=== PATIENT | male | born 1995 | race Caucasian/White ===

== ENCOUNTER 2025-01-20 13:33 | Observation (INO) ==
--- NOTE | 2025-01-20 14:04 | Emergency Department Note ---
Impression & Plan Alcoholic intoxication ED Provider Note Provider: Mir Golden MD CHIEF COMPLAINT: Intoxication HISTORY OF PRESENT ILLNESS: Patient is a 29-year-old gentleman sent via ambulance from [facility] rehab today after arriving intoxicated. Patient is evidently going there for alcohol rehab. According to facility and patient's father patient had a significant mount of alcohol up to 15 beers and a pint of vodka on the way there. Has not been taking his lithium in the last several days. Reported have allergies to Haldol Lamictal and has a history of violent/combative alcohol withdrawal. No traumas reported. Patient himself and provide me significant history and is barely arousable with physical stimuli upon evaluation. Does not urinate distress however. No vomiting reported. There is no reported history of alcohol withdrawal seizures. Father reports the patient has been through rehab several times and has been staying with last 2 weeks and has been drinking fairly heavily prickly over the past week. No reports of any seizures in the past with withdrawal. PAST MEDICAL HISTORY: As noted above MEDICATIONS: Home medication list reviewed not currently taking his lithium SOCIAL HISTORY: History of alcohol abuse PHYSICAL EXAM: GENERAL: Resting on the stretcher on his left side. Minimal grimace to painful stimuli. Smell of alcohol present Head: normocephalic and atraumatic EYES: No injection, discharge or icterus. PERRL NECK: Trachea midline. Supple. ENT: Mucous membranes pink and moist. LUNGS: Airway patent. No retractions. Breath sounds clear with good air entry bilaterally. HEART: Regular rate and rhythm. No chest wall tenderness ABDOMEN: Soft and non-tender, without guarding or rebound. SKIN: Acyanotic, warm, dry, without rashes EXTREMITIES: Without swelling, tenderness or deformity NEUROLOGICAL: Withdraws to pain in all 4 extremity. Not really answering questions at this time. EK bpm sinus tachycardia. No PVC or PAC. No acute ST segment elevation or depression with QTc of 461. CONTINUOUS CARDIAC MONITORING: was ordered and showed a heart rate of 90s to 100 bpm in normal sinus rhythm/sinus tachycardia Patient's laboratory studies and imaging reviewed. Differential includes Mood disorder, infection, hypoglycemia, electrolyte abnormalities, cardiac sources, intracerebral event, toxicologic, trauma, neurologic, as well as other pathologies. IMPRESSION/MEDICAL DECISION MAKING: Patient reportedly history of alcohol abuse and "combative "alcohol withdrawal. Alcohol use today and smells of alcohol. Alcohol level sent. No report of trauma. Patient seems significantly toxic upon arrival. Without history of trauma low suspicion for intracranial hemorrhage or traumatic bleed and do not feel we need additional head imaging. Blood work sent including electrolytes. Blood work here without significant anemia or leukocytosis. Normal platelet count. Normal INR. No severe electrolyte abnormality with a slightly elevated magnesium of 2.5. Jaconita level undetectable. Alcohol level elevated 374. LFTs completed as well. Patient still not able to have a good discussion. Father denies any history of seizures but some withdrawal symptoms. Given his significant intoxication at this time we will bring in for further observation and monitor for withdrawal. DIAGNOSIS: Alcohol intoxication DISPOSITION: Hospitalist will evaluate Past Med/Surg History Problem List (Updated 01/20/25 @ 14:07 by Mir Golden M.D.) Alcoholic intoxication (Acute) Social History Smoking Status: Never smoker Preferred Language: Azeri Feels Safe at Home: Yes Gender Identity: Male Allergies Allergies Allergy/AdvReac Type Severity Reaction Status Date / Time haloperidol [From Haldol] Allergy Unknown Verified 01/20/25 17:32 lamotrigine [From Lamictal] Allergy Unknown Verified 01/20/25 17:32 Results & Data (ED) Vital Signs Vital Signs - 24 hr 01/20/25 13:42 01/20/25 13:42 01/20/25 13:42 Temperature 36.6 C 36.6 C Temperature Source Oral Oral Pulse Rate 99 H Pulse Rate [Apical] Respiratory Rate 20 20 Respiratory Effort / Characteristics Non-Labored Non-Labored Respiratory Depth Normal Normal Blood Pressure 126/72 Blood Pressure [Right Arm] 126/72 Blood Pressure Mean 90 Blood Pressure Mean [Right Arm] 90 Pulse Oximetry 94 94 94 Oxygen Delivery Method Room Air Room Air Room Air Sepsis Recent Fever Within 48 Hours No Sepsis New/Unexplained Change in Mental Status Yes Sepsis Action Taken by Nursing No Action Required 01/20/25 13:54 01/20/25 14:02 01/20/25 14:53 Temperature Temperature Source Pulse Rate 100 H Pulse Rate [Apical] 94 H Respiratory Rate 20 Respiratory Effort / Characteristics Non-Labored Respiratory Depth Normal Blood Pressure Blood Pressure [Right Arm] 105/54 L Blood Pressure Mean Blood Pressure Mean [Right Arm] 71 Pulse Oximetry 96 94 Oxygen Delivery Method Room Air Room Air Sepsis Recent Fever Within 48 Hours Sepsis New/Unexplained Change in Mental Status Sepsis Action Taken by Nursing Laboratory Data 01/20/25 13:41 01/20/25 13:41 Lab Results 01/20/25 Range/Units 13:41 WBC 5.65 (4.8-10.8) K/ul RBC 4.50 L (4.70-6.10) M/uL Hgb 14.5 (14.0-18.0) g/dl Hct 40.2 L (42.0-52.0) % MCV 89.3 (80.0-100.0) fL MCH 32.2 (25.0-34.0) pg MCHC 36.1 H (32.0-36.0) g/dL RDW Std Deviation 41.3 (36.4-46.3) fL RDW Coeff of Michelle 12.5 (11.5-14.5) % Plt Count 346 (130-400) K/uL MPV 8.5 L (9.4-12.4) fL Immature Gran % (Auto) 0.2 % Neut % (Auto) 49.9 % Lymph % (Auto) 40.5 % Knott % (Auto) 8.5 % Eos % (Auto) 0.2 % Baso % (Auto) 0.7 % Neut # (Auto) 2.82 (1.40-6.50) K/uL Lymph # (Auto) 2.29 (1.20-3.40) K/uL Knott # (Auto) 0.48 (0.11-0.59) K/uL Eos # (Auto) 0.01 (0.00-0.50) K/uL Baso # (Auto) 0.04 (0.00-0.20) K/uL Immature Gran # (Auto) 0.01 (0.01-0.20) K/uL PT 10.6 (9.0-12.0) Seconds INR 1.0 (0.9-1.1) Sodium 144 (136-145) mmol/L Potassium 4.1 (3.5-5.1) mmol/L Chloride 109 H (98-107) mmol/L Carbon Dioxide 28 (21-32) mmol/L Anion Gap 7 (3-11) BUN 12 (6-23) mg/dl Creatinine 1.12 (0.6-1.4) mg/dl Est Cr Clr Drug Dosing 99.6 ml/min eGFR 90.63 BUN/Creatinine Ratio 10.7 (10-20) Glucose 102 H (70-99(Fasting)) mg/dl Calcium 8.3 L (8.6-10.3) mg/dl Magnesium 2.5 H (1.7-2.4) mg/dl Total Bilirubin 0.8 (0.2-1.0) mg/dl Direct Bilirubin 0.1 (0-0.2) mg/dl AST 26 (13-39) U/L ALT 29 (7-52) U/L Alkaline Phosphatase 68 (34-104) U/L Total Protein 6.4 (6.0-8.3) gm/dl Albumin 4.2 (3.4-5.0) gm/dl Jaconita < 0.1 L (0.6-1.2) mmol/L Ethyl Alcohol mg/dL 374.0 H (<10.0) mg/dl Administered Medications Thiamine HCl 100 mg/ Syringe 10 mls @ 2 mls[facility] [place]: 02/19/25 14:59 Last Admin: 01/20/25 17:34 Dose: 2 mls/min Documented By: DIXIE Folic Acid 1 mg/ Syringe 10 mls @ 5 mls/[facility] [place]: 02/19/25 14:59 Last Admin: 01/20/25 17:34 Dose: 5 mls/min Documented By: DIXIE Discontinued Medications Chlordiazepoxide HCl (Chlordiazepoxide Hcl 25 Mg Cap) 50 mg PO Q8H [facility] Stop: 01/22/25 14:01 Last Admin: 01/20/25 19:07 Dose: 50 mg Documented By: [facility] Sodium Chloride (Nss) 1,000 mls @ 125 mls/hr IV .Q8H [facility] Stop: 01/21/25 14:59 Last Admin: 01/20/25 17:34 Dose: 125 mls/hr Documented By: Marilyn Lorazepam (Lorazepam 2 Mg/1 Ml Vial) 2 mg IV UD PRN; Protocol PRN Reason: EtOH Withdrawal AWSS Score 8,9 Stop: 02/19/25 14:58 Last Admin: 01/20/25 17:40 Dose: 2 mg Documented By: Marilyn Lorazepam (Lorazepam 2 Mg/1 Ml Vial) 3 mg IV ONCE PRN; Protocol PRN Reason: EtOH Withdrawal AWSS Score 10+ Last Admin: 01/20/25 18:56 Dose: 3 mg Documented By: [facility] Miscellaneous Information (Patient's Allergy Info Needs Entered) 1 each N/A Q30M STA Stop: 01/20/25 15:04 Last Admin: 01/20/25 17:30 Dose: 1 each Documented By: Marilyn Olanzapine (Olanzapine 10 Mg/2.1 Ml Sdv) 5 mg IM NOW STA Stop: 01/20/25 18:29 Last Admin: 01/20/25 18:47 Dose: 5 mg Documented By: [facility] Phenobarbital Sodium (Phenobarbital Sodium 65 Mg/Ml Vial) 350 mg IV NOW STA Stop: 01/20/25 19:34 Last Admin: 01/20/25 19:59 Dose: 350 mg [place] [facility] [place] Visit Data Chief Complaint: Alcohol Intoxication ED Provider: Mir Golden Discharge Problem: Alcoholic intoxication Patient Disposition: Being Evaluated by Hospitalist Discharge Instructions Interventions: ED Discharge Assessment Last Done: 01/20/25 17:56
[2025-01-20 14:10] LABS: Basophils # (auto) 0.04 K/uL (0.00-0.20); Basophils % (auto) 0.7 %; Eosinophils # (auto) 0.01 K/uL (0.00-0.50); Eosinophils % (auto) 0.2 %; Hematocrit (blood only) 40.2 % (42.0-52.0); Hemoglobin 14.5 g/dl (14.0-18.0); Immature Granulocytes # (auto) 0.01 K/uL (0.01-0.20); Immature Granulocytes % (auto) 0.2 %; Lymphocytes # (auto) 2.29 K/uL (1.20-3.40); Lymphocytes % (auto) 40.5 %; Mean Corpuscular Hemoglobin 32.2 pg (25.0-34.0); Mean Corpuscular Hgb Conc 36.1 g/dL (32.0-36.0); Mean Corpuscular Volume 89.3 fL (80.0-100.0); Mean Platelet Volume 8.5 fL (9.4-12.4); Monocytes # (auto) 0.48 K/uL (0.11-0.59); Monocytes % (auto) 8.5 %; Neutrophils # (auto) 2.82 K/uL (1.40-6.50); Neutrophils % (auto) 49.9 %; Platelet Count 346 K/uL (130-400); RDW Coefficient of Variation 12.5 % (11.5-14.5); RDW Standard Deviation 41.3 fL (36.4-46.3); White Blood Count 5.65 K/ul (4.8-10.8)
[2025-01-20 14:25] LABS: BUN Creatinine Ratio 10.7 (10-20); Calcium 8.3 mg/dl (8.6-10.3); Creatinine Clr Calc Pharmacy 99.6 ml/min; Magnesium 2.5 mg/dl (1.7-2.4); Potassium 4.1 mmol/L (3.5-5.1)
[2025-01-20 14:30] LABS: Prothrombin Time 10.6 Seconds (9.0-12.0)
[2025-01-20] MEDS ORDERED: Ativan IV Alcohol Withdrawal--Active Protocol IV PRN (14:59)
[2025-01-20] MEDS ORDERED: LORazepam 2 MG/1 ML VIAL IV PRN ×2 (14:59→15:14)
--- NOTE | 2025-01-20 15:01 | History & Physical Report ---
Date of Service January 20, 2025 Assessment & Plan (1) Alcoholic intoxication: Plan: 29-year-old male with history of alcoholism, depression presenting with alcohol intoxication. Alcohol intoxication Chronic alcoholism Supposed to be starting inpatient alcohol rehab at [facility] today, but was found to be intoxicated, directed to the ER Alcohol level 300s LFTs within normal range As per father, patient has a tendency to become aggressive once he stops drinking alcohol, Denies history of DTs Since last alcohol drink was this morning and alcohol level is highly elevated today, will hold off on Librium, start Librium tomorrow if patient is more awake and alert For now, alcohol withdrawal protocol including IV Ativan as needed based on CESAR score, additional Ativan IV 0.5 every 4 hours for anxiety IV fluids Monitor LFTs Plan to return to [facility] once medically stable Depression Patient takes lithium-confirm dose and screen for severity of depression once patient is more awake and alert May need inpatient psych consult DVT prophylaxis SCDs for now CODE STATUS Full code Disposition Transition to [facility] alcohol [facility] once medically stable plan of care discussed with patient's father Edjennifer at bedside in detail and at length all questions answered he is understanding, agreeable, comfortable with the plan of care History of Present Illness Chief Complaint: Alcohol intoxication Primary Care Provider: NO PCP 29-year-old male with history of alcoholism, depression presenting with alcohol intoxication. History obtained from patient's father Jose at the bedside as patient is very lethargic. Patient's father states that patient has long history of alcoholism, and inpatient alcohol rehab states in the past. He was sober for a few months but relapsed recently. For the past few days, the patient has been staying with his father and was noted to be drinking 15 bottles of beer, with a bottle of vodka almost daily. Today, patient was supposed to be starting his first day at [facility] alcohol rehab. Unfortunately he consumed 5 bottles of beer and a pint of vodka as per his father. [facility] found to be [facility] and was directed to [facility]. At the ER, blood pressure 126/72, heart rate 99, respiratory 20, afebrile, 94% on room air. LFTs within normal range. No recent illnesses, no headache, dizziness, chest pain, shortness of breath, c ough, abdominal pain, nausea vomiting, or any other symptoms as per father. He takes lithium for depression-dose unknown as per father. Noted to be showing signs of worsening depression as per father as well, but no signs of suicidal ideations. Allergies Allergy/AdvReac Type Severity Reaction Status Date / Time haloperidol [From Haldol] Allergy Unknown Verified 01/20/25 15:08 lamotrigine [From Lamictal] Allergy Unknown Verified 01/20/25 15:08 Past Med/Surg History Problem List (Updated 01/20/25 @ 14:07 by Mir Golden M.D.) Alcoholic intoxication (Acute) Social History Smoking Status: Never smoker Preferred Language: Gambian Feels Safe at Home: Yes Gender Identity: Male Review of Systems Review of Systems: all noted and negative except for above Physical Exam Physical Exam: General- Lethargic, not in distress, Breathing with no effort or accessory muscle use Head- atraumatic Eyes- anicteric Neck- supple, no JVD, no adenopathy, no thyromegaly; carotids +2/2, no bruits appreciated Lungs- clear to auscultation bilaterally, no rales/wheezes Heart- normal rate, regular rhythm; no murmur, no gallop, no rub appreciated Abdomen- normal bowel sounds, nondistended, soft, nontender, no masses or hepatosplenomegaly Extremities- no pretibial edema, no calf tenderness; peripheral pulses intact Neuro-Lethargic, moving extremities equally Skin- warm & dry Results & Data Results & Data Vital Signs (Past 12 Hours) Vital Signs Temp Pulse Pulse Resp BP BP Pulse Ox 01/20/25 14:53 94 H 20 105/54 L 94 01/20/25 14:02 100 H 01/20/25 13:54 96 01/20/25 13:42 36.6 C 20 126/72 94 01/20/25 13:42 94 01/20/25 13:42 36.6 C 99 H 20 126/72 94 O2 Del Method 01/20/25 14:53 Room Air 01/20/25 14:02 01/20/25 13:54 Room Air 01/20/25 13:42 Room Air 01/20/25 13:42 Room Air 01/20/25 13:42 Room Air all noted and reviewed including below Code Status & VTE Plan VTE Prophylaxis Plan VTE Prophylaxis will be ordered: No
[2025-01-20 15:05] LABS: Albumin Level 4.2 gm/dl (3.4-5.0); Bilirubin,Total 0.8 mg/dl (0.2-1.0); Total Protein 6.4 gm/dl (6.0-8.3)
[2025-01-20 15:14] LABS: Bilirubin Direct 0.1 mg/dl (0-0.2)
[2025-01-20] MEDS: Patient's ALLERGY Info needs ENTERED STA (17:30)
[2025-01-20] MEDS: FOLIC ACID 1 MG in SYRINGE 9.8 ML IV SCH (17:34)
[2025-01-20] MEDS: SODIUM CHLORIDE 0.9% 1,000 ML IV SCH (17:34)
[2025-01-20] MEDS: THIAMINE HCL 100 MG in SYRINGE 9 ML IV SCH (17:34)
[2025-01-20] MEDS: LORazepam 2 MG/1 ML VIAL IV PRN ×2 (17:40→18:56)
[2025-01-20] MEDS: OLANZapine 10 MG/2.1 ML SDV IM STA (18:47)
[2025-01-20] MEDS ORDERED: chlordiazePOXIDE ALCOHOL WITHDRAWL 50MG PO STA (18:57)
[2025-01-20] MEDS: chlordiazePOXIDE HCl 25 MG CAP PO SCH ×2 (19:07→20:30)
[2025-01-20] MEDS ORDERED: PHENobarbital sodium 65 MG/ML VIAL IV PRN (19:48)
[2025-01-20] MEDS: PHENobarbital sodium 65 MG/ML VIAL IV STA (19:59)
[2025-01-20] MEDS: LACTATED RINGER'S 1,000 ML IV SCH (20:00)
[2025-01-20 20:38] LABS: BUN Creatinine Ratio 13.8 (10-20); Calcium 8.5 mg/dl (8.6-10.3); Creatinine Clr Calc Pharmacy 118.6 ml/min; Potassium 3.9 mmol/L (3.5-5.1)
[2025-01-20 21:00] LABS: Magnesium 2.2 mg/dl (1.7-2.4)
[2025-01-20] MEDS: ICU Protocol for HYPERglycemia SCH (21:00)
--- NOTE | 2025-01-20 21:00 | Critical Care Consultation ---
Date of Consultation January 20, 2025 Assessment & Plan (1) Alcohol abuse with withdrawal: Plan Reason Critically Ill: 1. Alcohol withdrawal 2. Violent behavior Neuro - RASS GOAL 0 Start phenobarbital. Give 4.8mg/kg now (350mg) followed by 65mg Q15min as needed to achieve RASS 0. Optimal load 12mg/kg given he has had 5mg Ativan and 5mg Zyprexa. Taper to start on day 2. Patient not taking Remerton after D/C from rehab per mother. Will need to be re- evaluated to determine if patient would benefit from this therapy prior to D/C Avoid Haldol due to prior reaction Can start clonidine if needed, though he is doing well with initial phenobarbital bolus and is now calm Cardiac - LR at 125cc/hr MAP goal > 65mmHg Respiratory - Monitor RR closely. Risk of respiratory suppression is low but not nonexistent SpO2 goal > 92% Aspiration precautions, HOB 30 IS/Flutter GI - Diet: NPO pending clinical improvement SUP: N/A Bowel regimen: Miralax RENAL/LYTES - No acute concerns Replete electrolytes as indicated Hernandez placed due to urinary retention IVF as above ENDO - No acute concerns Q6H BG while NPO BG 140-180 per SCCM guidelines ISS if needed while inpatient HEME - No acute concerns ID - No acute concerns LINES/TUBES/DRAINS - PIV x2 Hernandez (Day #1) DVT PROPHYLAXIS - Enoxaparin if not ambulatory in the next day I have personally spent 35 minutes of critical care time in the direct management of this patient. This is a life/limb threatening event. This includes time spent evaluating patient, direct bedside care, chart review, placing orders, interpretation of diagnostic studies, discussion with consultants, patient, and family members, as well as other required patient management activities. This time is exclusive of all separately billable procedures, and teaching time and separate from and in addition to any other critical care service time. Thank you for allowing us to participate in the care of this patient. Please refer to my attending physician's documentation for any further recommendations. Supervising Physician Co-Signing Physician Notes Patient seen and examined. EMR reviewed. Discussed with critical care WALE and agree with assessment plan as noted. Please refer to my progress note from 01/21/2025 for additional details. History of Present Illness Reason for Consultation: Alcohol withdrawal Requesting Physician: Jennifer Attending Physician: Gurmeet Rodriguez MD History of Present Illness Mr. Toi Madsen is a 29YOM with a history significant for alcohol use disorder with prior withdrawal, bipolar disorder, depression who was admitted to [facility] on 01/20/2025 due to alcohol intoxication. Per report, patient was en route to alcohol rehabilitation when he was found to be intoxicated, thus sent to the ED for evaluation. Alcohol level 374, remainder of work-up unremarkable. Patient was somnolent in the ED. Admitted to Medicine service. Around 2029 the patient became acutely agitated and combative. He received 5mg total IV Ativan as well as 5mg Zyprexa. He remained violent, requiring 4 point restraints. Not redirectable. Our services was consulted for possible transfer to ICU. Patient was seen in 261. He is intermittently screaming nonsensically. Tachycardic otherwise hemodynamically stable. Unable to elicit ROS or history. Patient's father is present. He gives additional history. Toi has been in and out of alcohol rehabilitation for the better part of the past 10 years. Most recently he was discharged from a rehab about 1 month ago where he spent 2 months. He was also started on Remerton for possible Bipolar disorder. He has been drinking approximately 15 beers and 1 5th of vodka per day. He becomes extremely agitated and often violent when he develops withdrawals. No history of DTs per family. Allergies Allergy/AdvReac Type Severity Reaction Status Date / Time haloperidol [From Haldol] Allergy Unknown Verified 01/20/25 17:32 lamotrigine [From Lamictal] Allergy Unknown Verified 01/20/25 17:32 Patient History Social History Smoking Status: Unknown if ever smoked Hx Alcohol Use: Yes Alcohol type: beer and hard liquor Hx Substance Use: Yes Preferred Language: Ukrainian [employer] Required: No Current Living Situation: Parent Feels Safe at Home: Yes Gender Identity: Male Review of Systems Review of Systems: Unobtainable due to cognitive status Physical Exam Constitutional: well developed, average body habitus, + altered mental status and + combative Eyes: + anicteric sclerae exam is limited by agitation ENMT: Limited exam. No obvious abnormalities Neck: trachea midline, no thyromegaly Respiratory: + tachypneic Cardiovascular: Rate/Rhythm: regular rhythm and + tachycardic Vessels: no JVD Extremities: normal capillary refill; no edema Gastrointestinal (Abdomen): Inspection/Auscultation: abdomen normal to inspection; abdomen not distended Percussion/Palpation: abdomen soft Skin: no rashes, warm and dry Neurologic: moves all extremities, awake and + confused Psychiatric: Orientation: alert; + uncooperative Apperance: + disheveled and appeared stated age Eye Contact: + poor eye contact Speech: + loud speech Affect: + angry affect Mood: + angry mood Results & Data Results & Data Vital Signs (Past 12 Hours) Vital Signs Temp Pulse Pulse Resp BP BP Pulse Ox 01/20/25 18:59 36.5 C 105 H 22 112/74 94 01/20/25 18:45 01/20/25 17:32 36.8 C 107 H 14 127/76 01/20/25 14:53 94 H 20 105/54 L 94 01/20/25 14:02 100 H 01/20/25 13:54 96 01/20/25 13:42 36.6 C 20 126/72 94 01/20/25 13:42 94 01/20/25 13:42 36.6 C 99 H 20 126/72 94 Pulse Ox O2 Del Method O2 Del Method 01/20/25 18:59 Room Air 01/20/25 18:45 94 Room Air 01/20/25 17:32 01/20/25 14:53 Room Air 01/20/25 14:02 01/20/25 13:54 Room Air 01/20/25 13:42 Room Air 01/20/25 13:42 Room Air 01/20/25 13:42 Room Air Laboratory Results Reviewed Diagnostic Findings Reviewed Medications Administered See MAR Coding Level of Care Code 92620 CRITICAL CARE 1ST 30-74M Diagnoses Alcohol abuse with withdrawal F10.139 Time Spent (min) 30
--- NOTE | 2025-01-20 22:42 | Electrocardiogram Report ---
Test Reason : Blood Pressure : */* mmHG Vent. Rate : 102 BPM Atrial Rate : 102 BPM P-R Int : 130 ms QRS Dur : 96 ms QT Int : 354 ms P-R-T Axes : 72 85 76 degrees QTcB Int : 461 ms Sinus tachycardia Otherwise normal ECG No previous ECGs available Confirmed by Luca Thomas ([id number]) on 01/20/2025 10:41:57 PM Referred By: REFERRED SELF Confirmed By: Luca Thomas
[2025-01-20 23:02] LABS: Appearance Urine Clear (Clear); Bacteria Urine Automated None Seen (None Seen); Bilirubin Urine Negative (Negative); Blood Urine 1+ (Negative); Cast Urine Automated 0-2 /lpf (0-2); Color Urine Yellow; Epithelial Cell Urine Auto 0-2 /hpf (0-2); Glucose Urine UA Negative (Negative); Ketones Urine Trace (Negative); Leukocyte Esterase Urine Negative (Negative); Nitrite Urine Negative (Negative); Protein Urine Negative (Negative); Specific Gravity Urine 1.021 (1.000-1.030); Urobilinogen Urine Negative (Negative); WBC Urine Automated 0-5 /hpf (0-5); pH Urine 6.5 (4.5-7.5)
[2025-01-20 23:25] LABS: Amphetamines+Metham, Urine Neg (Neg); Barbiturates, Urine Pos (Neg); Benzodiazepine, Urine Neg (Neg); Cocaine, Urine Neg (Neg); Fentanyl, Urine Neg (Neg); MDMA (Ecstacy), Urine Neg (Neg); Marijuana, Urine Neg (Neg); Methadone, Urine Neg (Neg); Opiate, Urine Neg (Neg); Phencyclidine, Urine Neg (Neg)
[2025-01-21] MEDS: PHENobarbital sodium 65 MG/ML VIAL IV PRN ×2 (03:12→08:40)
[2025-01-21 04:47] LABS: Hematocrit (blood only) 38.7 % (42.0-52.0); Hemoglobin 13.3 g/dl (14.0-18.0); Mean Corpuscular Hgb Conc 34.4 g/dL (32.0-36.0); Mean Corpuscular Volume 90.2 fL (80.0-100.0); Mean Platelet Volume 8.3 fL (9.4-12.4); Platelet Count 294 K/uL (130-400); RDW Coefficient of Variation 12.8 % (11.5-14.5); Red Blood Count 4.29 M/uL (4.70-6.10); White Blood Count 4.63 K/ul (4.8-10.8)
[2025-01-21 05:04] LABS: Basophils # (auto) 0.03 K/uL (0.00-0.20); Basophils % (auto) 0.6 %; Eosinophils # (auto) 0.06 K/uL (0.00-0.50); Eosinophils % (auto) 1.3 %; Immature Granulocytes # (auto) 0.01 K/uL (0.01-0.20); Immature Granulocytes % (auto) 0.2 %; Lymphocytes # (auto) 2.34 K/uL (1.20-3.40); Lymphocytes % (auto) 50.5 %; Monocytes # (auto) 0.43 K/uL (0.11-0.59); Monocytes % (auto) 9.3 %; Neutrophils # (auto) 1.76 K/uL (1.40-6.50); Neutrophils % (auto) 38.1 %; RBC Morphology Unremarkable
[2025-01-21 05:05] LABS: BUN Creatinine Ratio 14.3 (10-20); Calcium 8.1 mg/dl (8.6-10.3); Chol HDL Ratio 3.3 (0-5); Creatinine Clr Calc Pharmacy 122.6 ml/min; Magnesium 2.1 mg/dl (1.7-2.4); Phosphorus 3.1 mg/dl (2.5-4.9); Potassium 3.8 mmol/L (3.5-5.1)
[2025-01-21] MEDS: ICU ELECTROLYTE REPLACEMENT PROTOCOL SCH (05:45)
[2025-01-21] MEDS ORDERED: PHENobarbital PO Alcohol Withdrawal PO STA (07:49)
--- NOTE | 2025-01-21 07:56 | Critical Care Progress Note ---
Date of Service January 21, 2025 Assessment & Plan (1) Alcohol abuse with withdrawal: Plan Reason Critically Ill: 29-year-old alcoholic here with alcohol intoxication and inappropriate behavior 24-hour events: Patient presented to the emergency room with acute and intoxication. He became agitated. There was concern about alcohol withdrawal and he was admitted to the ICU. Recommendations Neuro -patient was acutely intoxicated yesterday. Therefore its impossible for him to have alcohol withdrawal. At this point in time his belligerent and inappropriate behavior is related to acute alcohol intoxication. Can continue phenobarb as this will prevent the patient from going into alcohol withdrawal however his acutely elevated alcohol level should cover him from significant alcohol withdrawal over the next 3 to 4 days. Continue high-dose thiamine and folate. Patient will need case management and consideration for alcohol rehab in the outpatient setting Cardiac -no current issues Respiratory -no issues GI -diet as tolerated RENAL/LYTES -electrolyte replacement. ENDO - no current issues HEME - No acute concerns ID - No acute concerns LINES/TUBES/DRAINS - PIV x2 Hernandez (Day #1) DVT PROPHYLAXIS - Subcu heparin every 8 Anticipate the patient can likely transfer to the floor under the care of the hospitalists. Admission and Anticipated Discharge Date Admission Date: January 20, 2025 Subjective Patient seen and examined. EMR reviewed. Discussed with critical care WALE and bedside critical care nurse as well as on multidisciplinary rounds. Patient is currently awake alert conversant and pleasant. He denies visual or tactile hallucinations. He has not demonstrated any hemodynamic instability. Review of Systems Review of Systems: All systems reviewed & are unremarkable except as noted in Subjective Physical Exam Constitutional: WD/WN, vitals as above Neck: trachea midline, no thyromegaly Respiratory: normal respiratory effort, lungs clear to auscultation Cardiovascular: RRR, no murmur, no edema Gastrointestinal (Abdomen): normal bowel sounds, soft, nontender, no hepatosplenomegaly Musculoskeletal: Extremities: extremities normal to inspection Skin: no rashes, warm and dry Neurologic: Nonfocal exam Lymphatic: no cervical lymphadenopathy Results & Data Results & Data Vital Signs (Past 12 Hours) Vital Signs Temp Pulse Pulse Resp BP BP Pulse Ox 01/21/25 05:45 101/71 01/21/25 05:39 78 14 98 01/21/25 05:30 72 13 98 01/21/25 05:30 108/70 01/21/25 05:24 81 15 96 01/21/25 05:15 102/66 01/21/25 05:15 102/66 01/21/25 05:09 83 17 95 01/21/25 05:00 103/70 01/21/25 05:00 103/70 01/21/25 04:45 108/71 01/21/25 04:36 82 14 97 01/21/25 04:30 96/72 L 01/21/25 04:30 96/72 L 01/21/25 04:30 96/72 L 01/21/25 04:30 81 14 95 01/21/25 04:15 119/70 01/21/25 04:09 78 14 95 01/21/25 03:45 79 15 97 01/21/25 03:45 115/84 01/21/25 03:45 115/84 01/21/25 03:45 115/84 01/21/25 03:41 90 18 114/70 01/21/25 03:30 114/70 01/21/25 03:30 114/70 01/21/25 03:30 84 15 93 01/21/25 03:12 80 25 H 118/80 01/21/25 03:00 86 14 98 01/21/25 01:45 101/74 01/21/25 01:45 101/74 01/21/25 01:45 79 13 98 01/21/25 01:36 93 H 15 98 01/21/25 01:15 86 16 96 01/21/25 01:15 104/56 L 01/21/25 01:15 104/56 L 01/21/25 01:09 82 14 96 01/21/25 01:00 101/57 L 01/21/25 01:00 101/57 L 01/21/25 00:45 83 16 97 01/21/25 00:45 90 01/21/25 00:36 82 18 96 01/21/25 00:30 98/56 L 01/21/25 00:15 99/60 L 01/21/25 00:09 88 23 96 01/20/25 23:45 98/56 L 01/20/25 23:45 98/56 L 01/20/25 23:42 84 15 95 01/20/25 23:30 105/60 01/20/25 23:30 105/60 01/20/25 23:30 105/60 01/20/25 23:30 82 15 96 01/20/25 23:15 102/65 01/20/25 23:15 102/65 01/20/25 23:15 102/65 01/20/25 23:15 82 17 99 01/20/25 23:09 86 17 98 01/20/25 23:00 101/56 L 01/20/25 23:00 101/56 L 01/20/25 22:15 107/55 L 01/20/25 22:15 107/55 L 01/20/25 22:09 90 17 96 01/20/25 22:03 90 19 96 01/20/25 22:00 110/56 L 01/20/25 21:57 95 H 18 95 01/20/25 21:52 95 H 18 108/59 L 95 01/20/25 21:45 108/59 L 01/20/25 21:42 98 H 18 95 01/20/25 21:39 01/20/25 21:30 95 H 19 95 01/20/25 21:30 111/61 01/20/25 21:15 107/64 01/20/25 21:15 97 H 23 95 01/20/25 21:00 114/60 01/20/25 20:57 96 H 18 95 01/20/25 20:30 119/75 01/20/25 20:12 116 H 14 96 01/20/25 20:10 122/81 01/20/25 20:03 113 H 18 94 01/20/25 18:59 36.5 C 105 H 22 112/74 94 Pulse Ox O2 Del Method O2 Del Method 01/21/25 05:45 01/21/25 05:39 01/21/25 05:30 01/21/25 05:30 01/21/25 05:24 01/21/25 05:15 01/21/25 05:15 01/21/25 05:09 01/21/25 05:00 01/21/25 05:00 01/21/25 04:45 01/21/25 04:36 01/21/25 04:30 01/21/25 04:30 01/21/25 04:30 01/21/25 04:30 01/21/25 04:15 01/21/25 04:09 01/21/25 03:45 01/21/25 03:45 01/21/25 03:45 01/21/25 03:45 01/21/25 03:41 01/21/25 03:30 01/21/25 03:30 01/21/25 03:30 01/21/25 03:12 01/21/25 03:00 01/21/25 01:45 01/21/25 01:45 01/21/25 01:45 01/21/25 01:36 01/21/25 01:15 01/21/25 01:15 01/21/25 01:15 01/21/25 01:09 01/21/25 01:00 01/21/25 01:00 01/21/25 00:45 01/21/25 00:45 01/21/25 00:36 01/21/25 00:30 01/21/25 00:15 01/21/25 00:09 01/20/25 23:45 01/20/25 23:45 01/20/25 23:42 01/20/25 23:30 01/20/25 23:30 01/20/25 23:30 01/20/25 23:30 01/20/25 23:15 01/20/25 23:15 01/20/25 23:15 01/20/25 23:15 01/20/25 23:09 01/20/25 23:00 01/20/25 23:00 01/20/25 22:15 01/20/25 22:15 01/20/25 22:09 01/20/25 22:03 01/20/25 22:00 01/20/25 21:57 01/20/25 21:52 Room Air 01/20/25 21:45 01/20/25 21:42 01/20/25 21:39 96 Room Air 01/20/25 21:30 01/20/25 21:30 01/20/25 21:15 01/20/25 21:15 01/20/25 21:00 01/20/25 20:57 01/20/25 20:30 01/20/25 20:12 01/20/25 20:10 01/20/25 20:03 01/20/25 18:59 Room Air Critical Care Results & Data Vital Signs (Past 12 Hours) Vital Signs Temp Pulse Pulse Resp BP BP Pulse Ox 01/21/25 05:45 101/71 01/21/25 05:39 78 14 98 01/21/25 05:30 72 13 98 01/21/25 05:30 108/70 01/21/25 05:24 81 15 96 01/21/25 05:15 102/66 01/21/25 05:15 102/66 01/21/25 05:09 83 17 95 01/21/25 05:00 103/70 01/21/25 05:00 103/70 01/21/25 04:45 108/71 01/21/25 04:36 82 14 97 01/21/25 04:30 96/72 L 01/21/25 04:30 96/72 L 01/21/25 04:30 96/72 L 01/21/25 04:30 81 14 95 01/21/25 04:15 119/70 01/21/25 04:09 78 14 95 01/21/25 03:45 79 15 97 01/21/25 03:45 115/84 01/21/25 03:45 115/84 01/21/25 03:45 115/84 01/21/25 03:41 90 18 114/70 01/21/25 03:30 114/70 01/21/25 03:30 114/70 01/21/25 03:30 84 15 93 01/21/25 03:12 80 25 H 118/80 01/21/25 03:00 86 14 98 01/21/25 01:45 101/74 01/21/25 01:45 101/74 01/21/25 01:45 79 13 98 01/21/25 01:36 93 H 15 98 01/21/25 01:15 86 16 96 01/21/25 01:15 104/56 L 01/21/25 01:15 104/56 L 01/21/25 01:09 82 14 96 01/21/25 01:00 101/57 L 01/21/25 01:00 101/57 L 01/21/25 00:45 83 16 97 01/21/25 00:45 90 01/21/25 00:36 82 18 96 01/21/25 00:30 98/56 L 01/21/25 00:15 99/60 L 01/21/25 00:09 88 23 96 01/20/25 23:45 98/56 L 01/20/25 23:45 98/56 L 01/20/25 23:42 84 15 95 01/20/25 23:30 105/60 01/20/25 23:30 105/60 01/20/25 23:30 105/60 01/20/25 23:30 82 15 96 01/20/25 23:15 102/65 01/20/25 23:15 102/65 01/20/25 23:15 102/65 01/20/25 23:15 82 17 99 01/20/25 23:09 86 17 98 01/20/25 23:00 101/56 L 01/20/25 23:00 101/56 L 01/20/25 22:15 107/55 L 01/20/25 22:15 107/55 L 01/20/25 22:09 90 17 96 01/20/25 22:03 90 19 96 01/20/25 22:00 110/56 L 01/20/25 21:57 95 H 18 95 01/20/25 21:52 95 H 18 108/59 L 95 01/20/25 21:45 108/59 L 01/20/25 21:42 98 H 18 95 01/20/25 21:39 01/20/25 21:30 95 H 19 95 01/20/25 21:30 111/61 01/20/25 21:15 107/64 01/20/25 21:15 97 H 23 95 01/20/25 21:00 114/60 01/20/25 20:57 96 H 18 95 01/20/25 20:30 119/75 01/20/25 20:12 116 H 14 96 01/20/25 20:10 122/81 01/20/25 20:03 113 H 18 94 01/20/25 18:59 36.5 C 105 H 22 112/74 94 Pulse Ox O2 Del Method O2 Del Method 01/21/25 05:45 01/21/25 05:39 01/21/25 05:30 01/21/25 05:30 01/21/25 05:24 01/21/25 05:15 01/21/25 05:15 01/21/25 05:09 01/21/25 05:00 01/21/25 05:00 01/21/25 04:45 01/21/25 04:36 01/21/25 04:30 01/21/25 04:30 01/21/25 04:30 01/21/25 04:30 01/21/25 04:15 01/21/25 04:09 01/21/25 03:45 01/21/25 03:45 01/21/25 03:45 01/21/25 03:45 01/21/25 03:41 01/21/25 03:30 01/21/25 03:30 01/21/25 03:30 01/21/25 03:12 01/21/25 03:00 01/21/25 01:45 01/21/25 01:45 01/21/25 01:45 01/21/25 01:36 01/21/25 01:15 01/21/25 01:15 01/21/25 01:15 01/21/25 01:09 01/21/25 01:00 01/21/25 01:00 01/21/25 00:45 01/21/25 00:45 01/21/25 00:36 01/21/25 00:30 01/21/25 00:15 01/21/25 00:09 01/20/25 23:45 01/20/25 23:45 01/20/25 23:42 01/20/25 23:30 01/20/25 23:30 01/20/25 23:30 01/20/25 23:30 01/20/25 23:15 01/20/25 23:15 01/20/25 23:15 01/20/25 23:15 01/20/25 23:09 01/20/25 23:00 01/20/25 23:00 01/20/25 22:15 01/20/25 22:15 01/20/25 22:09 01/20/25 22:03 01/20/25 22:00 01/20/25 21:57 01/20/25 21:52 Room Air 01/20/25 21:45 01/20/25 21:42 01/20/25 21:39 96 Room Air 01/20/25 21:30 01/20/25 21:30 01/20/25 21:15 01/20/25 21:15 01/20/25 21:00 01/20/25 20:57 01/20/25 20:30 01/20/25 20:12 01/20/25 20:10 01/20/25 20:03 01/20/25 18:59 Room Air Lab & Micro Results (Past 24 Hours) RBC 4.29 M/uL (4.70-6.10) L 01/21/25 WBC 4.63 K/ul (4.8-10.8) L 01/21/25 Hgb 13.3 g/dl (14.0-18.0) L 01/21/25 Hct 38.7 % (42.0-52.0) L 01/21/25 MCV 90.2 fL (80.0-100.0) 01/21/25 MCH 31.0 pg (25.0-34.0) 01/21/25 MCHC 34.4 g/dL (32.0-36.0) 01/21/25 RDW Standard Deviation 42.0 fL (36.4-46.3) 01/21/25 RDW Coefficient of Variation 12.8 % (11.5-14.5) 01/21/25 Plt Count 294 K/uL (130-400) 01/21/25 MPV 8.3 fL (9.4-12.4) L 01/21/25 Neutrophils (%) (Auto) 38.1 % 01/21/25 Lymphocytes (%) (Auto) 50.5 % 01/21/25 Monocytes # (Auto) 0.43 K/uL (0.11-0.59) 01/21/25 Eosinophils # (Auto) 0.06 K/uL (0.00-0.50) 01/21/25 Immature Granulocyte % (Auto) 0.2 % 01/21/25 Neutrophils # (Auto) 1.76 K/uL (1.40-6.50) 01/21/25 Lymphocytes # (Auto) 2.34 K/uL (1.20-3.40) 01/21/25 Monocytes # (Auto) 0.43 K/uL (0.11-0.59) 01/21/25 Eosinophils # (Auto) 0.06 K/uL (0.00-0.50) 01/21/25 Basophils # (Auto) 0.03 K/uL (0.00-0.20) 01/21/25 Immature Granulocyte # (Auto) 0.01 K/uL (0.01-0.20) 5 Red Blood Cell Morphology Unremarkable 01/21/25 Na 139 mmol/L (136-145) 01/21/25 K 3.8 mmol/L (3.5-5.1) 01/21/25 Cl 107 mmol/L (98-107) 01/21/25 CO2 26 mmol/L (21-32) 01/21/25 Anion Gap 6 (3-11) 01/21/25 BUN 13 mg/dl (6-23) 01/21/25 Creatinine 0.91 mg/dl (0.6-1.4) 01/21/25 BUN/Creatinine Ratio 14.3 (10-20) 01/21/25 Glu 89 mg/dl (70-99(Fasting)) 01/21/25 Ca 8.1 mg/dl (8.6-10.3) L 01/21/25 Phosphorus Level 3.1 mg/dl (2.5-4.9) 01/21/25 Total Bilirubin 0.8 mg/dl (0.2-1.0) 01/20/25 Direct Bilirubin 0.1 mg/dl (0-0.2) 01/20/25 AST 26 U/L (13-39) 01/20/25 ALT 29 U/L (7-52) 01/20/25 Alkaline Phosphatase 68 U/L (34-104) 01/20/25 TP 6.4 gm/dl (6.0-8.3) 01/20/25 Albumin 4.2 gm/dl (3.4-5.0) 01/20/25 Mg 2.1 mg/dl (1.7-2.4) 01/21/25 04:32 Calcium Level 8.1 mg/dl (8.6-10.3) L 01/21/25 04:32 Prothromb Time International Ratio 1.0 (0.9-1.1) 01/20/25 13:4 1 I & O Totals 24 Hours 01/20/25 01/21/25 01/22/25 05:59 06:59 06:59 Intake Total Output Total Balance Cumulative 01/20/25 13:21 thru 01/21/25 06:40 Intake Total 2558.333 Output Total 2235 Balance 323.333 RT Ventilator Mngmt (Last Documented) Ventilator Ordered Settings Respiratory Rate 14 01/21/25 05:39 Ventilator - PT Measurements Respiratory Rate 14 End-Tidal CO2 33 Coding Level of Care Code 94379 SUB INP/OBS CARE 2/35MIN Diagnoses Alcohol abuse with withdrawal F10.139
[2025-01-21] MEDS: POTASSIUM CHLORIDE CRTAB 20 MEQ TABCR PO STA (08:36)
[2025-01-21] MEDS: FOLIC ACID 1 MG TAB PO SCH (08:40)
[2025-01-21] MEDS: THIAMINE HCL 100 MG TAB PO SCH (08:43)
[2025-01-21] MEDS ORDERED: INFLUENZA VACC TS2024-25(6m+)/PF (IIV3) 0.5mL Syr IM ONE (09:00)
[2025-01-21] MEDS ORDERED: MULTIVITAMIN TAB PO SCH (09:00)
[2025-01-21] MEDS ORDERED: PNEUMOCOCCAL VACCINE (PCV20) 20-VAL CONJ-DIP CRM/PF 0.5 ML SYR IM ONE (09:00)
--- NOTE | 2025-01-21 09:49 | Discharge Summary ---
Discharge Summary Date of Service January 21, 2025 Principal Dx & Hospital Course #1 = Principal Diagnosis (1) Alcoholic intoxication: (2) Alcohol abuse: Plan Patient is a 29-year-old gentleman with known history of alcohol dependence and abuse. He has a known history of aggressive and violent behaviors when he stops drinking. Patient has been in alcohol rehab before. He was just recently discharged about 1 month ago. Reportedly he was started on lithium for a diagnosis of bipolar disorder. He presented to the emergency room intoxicated and wanting to go back to rehab. Patient was admitted to the hospital with an elevated alcohol level in his blood. He was treated with alcohol withdrawal protocol and benzodiazepines. As previous he became quite violent with his behaviors. He was transferred to the ICU for phenobarbital IV injections. This controlled his behaviors quite well. On the morning of discharge she was awake. He was alert. He was oriented x 3. He was able to make his own decisions and understand the repercussions of his decisions. Initially he was agreeable to staying to become medically stabilized so he could get to [facility] rehab. However, later he changed his mind. He was evaluated again. He was again oriented x 3. He understood that he could not go to [facility] until he was medically cleared. He was slightly agitated but not violent and understood the risks of leaving the hospital and having severe withdrawal. Despite knowing all this he chose to sign out AGAINST MEDICAL ADVICE. Status at the bedside. His father also was discouraging him from signing out AMA, however patient again was able to make his own decisions and chose to sign out AGAINST MEDICAL ADVICE excepting the risks of that decision. Notes For Next Care Provider Continue to encourage patient to address his alcohol addiction with multimodal approach Consider outpatient psychiatric evaluation Medication Changes From Visit None Admission HPI Per Admitting Provider 29-year-old male with history of alcoholism, depression presenting with alcohol intoxication. History obtained from patient's father Edward at the bedside as patient is very lethargic. Patient's father states that patient has long history of alcoholism, and inpatient alcohol rehab states in the past. He was sober for a few months but relapsed recently. For the past few days, the patient has been staying with his father and was noted to be drinking 15 bottles of beer, with a bottle of vodka almost daily. Today, patient was supposed to be starting his first day at [facility] alcohol rehab. Unfortunately he consumed 5 bottles of beer and a pint of vodka as per his father. Upon arrival to [facility] rehab, he was found to be intoxicated and was directed to [facility]. At the ER, blood pressure 126/72, heart rate 99, respiratory 20, afebrile, 94% on room air. LFTs within normal range. No recent illnesses, no headache, dizziness, chest pain, shortness of breath, cough, abdominal pain, nausea vomiting, or any other symptoms as per father. He takes lithium for depression-dose unknown as per father. Noted to be showing signs of worsening depression as per father as well, but no signs of suicidal ideations. Admission Exam Per Admitting Provider See H&P Discharge Exam Constitutional: Alert, nontoxic, no acute distress HEENT: Mucous membranes moist. Lungs: Clear to auscultation, decreased, no wheezes rales or rhonchi CV: S1-S2, regular Abdomen: Soft, nontender, nondistended Extremities: No significant edema Neuro: No focal deficits Psych: Irritated, anxious to get out, able to make his own decisions Hospital Stay Data Consultations 01/20/25 15:03 ED Decision to Admit Stat 01/20/25 19:40 Consult Derivatives Trader Routine Diagnostic Imagining Performed Reviewed imaging, laboratory and diagnostic studies. Pertinent findings as below. WBCs 4.6 Hemoglobin 13.3 Platelets of 294 Electrolytes all within normal range Creatinine 0.91 LFTs within normal range Urinalysis negative for signs of infection Plaza level less than 0.1 Pending Results Patient Have Any Pending Studies at Discharge: No Total Time Total Time Spent Total Time Spent (In Minutes): 42
[2025-01-21] MEDS ORDERED: POTASSIUM CHLORIDE CRTAB 20 MEQ TABCR PO ONE (10:45)
[2025-01-22] MEDS ORDERED: PHENobarbitaL 30 MG TAB PO SCH (02:00)
[2025-01-22] MEDS ORDERED: chlordiazePOXIDE HCl 25 MG CAP PO SCH (22:00)
[2025-01-23] MEDS ORDERED: PHENobarbitaL 30 MG TAB PO SCH (02:00)
[2025-01-23 15:36] LABS: Amobarbital, Urine Conf NEGATIVE ng/mL (<100); Butalbital, Urine NEGATIVE ng/mL (<100); Pentobarbital, Urine Conf NEGATIVE ng/mL (<100); Phenobarbital, Urine >5000 ng/mL (<100); Secobarbital, Urine Conf NEGATIVE ng/mL (<100)
[2025-01-24] MEDS ORDERED: PHENobarbitaL 30 MG TAB PO SCH (14:00)
== END 2025-01-21 10:43 | disposition left against medical advice (07) | DRG 894 ==
LOC: ED 13:33 → SUATTDRO 14:59 → INTOOBSV 14:59 → 2W 14:59 → 1E 19:27